=== PATIENT | male | born 1995 ===

== ENCOUNTER 2019-03-25 10:09 | Emergency (ER) | payer SELFPAY ==
[2019-03-25 10:22] VITALS: RESP 18; O2SAT 99
[2019-03-25] MEDS ORDERED: Naproxen 550 mg Tab PO STA (11:07)
[2019-03-25] MEDS ORDERED: Naproxen 550 mg Tab PO ONE (11:13)
[2019-03-25 12:02] VITALS: BP 122/78; PULSE 74; TEMP 98
--- NOTE | 2019-03-25 12:11 | C.PDOC ---
History Of Present Illness 24-year-old male presents to the ED for evaluation of lower back pain which began yesterday. Patient states he lifted a heavy table while at work and began feeling back pain. Patient states his pain worsened as the day progressed and notes pain is worse when he moves and bends down. Patient denies abdominal pain, urinary/bowel incontinence, hematuria, dysuria, extremit numbness/weakness, or falls. Time Seen by Provider: 03/25/19 10:26 Chief Complaint (Nursing): Back Pain History Per: Patient History/Exam Limitations: no limitations Onset/Duration Of Symptoms: Hrs Current Symptoms Are (Timing): Worse Quality Of Discomfort: "Pain" Pain Scale Rating Of: 5 Previous Symptoms: Back Pain Associated Symptoms: denies: Incontinence, New Weakness, New Numbness Exacerbating Factor(s): Movement, Other (bending down ) Additional History Per: Patient Past Medical History Reviewed: Historical Data, Nursing Documentation, Vital Signs Vital Signs: Last Vital Signs Temp 98.0 F 03/25/19 12:01 Pulse 74 03/25/19 12:01 Resp 18 03/25/19 12:01 BP 122/78 03/25/19 12:01 Pulse Ox 99 03/25/19 12:01 Primary Care Provider: FAMILY PROVIDER,NO - Medical History PMH: No Chronic Diseases Surgical History: No Surg Hx Family History: States: Unknown Family Hx - Social History Hx Alcohol Use: No Hx Substance Use: No - Immunization History Hx Tetanus Toxoid Vaccination: No Hx Influenza Vaccination: No Hx Pneumococcal Vaccination: No Review Of Systems Constitutional: Negative for: Fever, Chills Gastrointestinal: Negative for: Abdominal Pain Genitourinary: Negative for: Dysuria, Incontinence, Hematuria Musculoskeletal: Positive for: Back Pain (lower) Skin: Negative for: Rash, Lesions, Jaundice, Bruising Neurological: Negative for: Weakness, Numbness Physical Exam - Physical Exam Appears: Non-toxic, No Acute Distress Skin: Normal Color, Warm, Dry, No Rash Head: Atraumatic, Normacephalic Eye(s): bilateral: Normal Inspection Oral Mucosa: Moist Neck: Normal ROM, Supple Chest: Symmetrical, No Deformity, No Tenderness Cardiovascular: Rhythm Regular, No Friction Rub, No Murmur Respiratory: Normal Breath Sounds, No Rales, No Rhonchi, No Wheezing Gastrointestinal/Abdominal: Soft, No Tenderness, No Guarding, No Rebound Back: No CVA Tenderness, No Vertebral Tenderness, Paraspinal Tenderness (bilateral paralumbar tenderness ), Straight Leg Raising Extremity: Normal ROM, Capillary Refill (less than 2 seconds ), No Swelling Pulses: Left Dorsalis Pedis: Normal, Right Dorsalis Pedis: Normal Neurological/Psych: Oriented x3, Normal Speech, Normal Cognition, Normal Motor, Normal Sensation Gait: Steady ED Course And Treatment O2 Sat by Pulse Oximetry: 99 (on RA) Pulse Ox Interpretation: Normal - Other Rad LS Spine XR X-Ray: Viewed By Me, Read By Radiologist Interpretation: Date of service: 03/25/2019. PROCEDURE: Radiographs of the Lumbar Spine. HISTORY: LOW BACK PAIN,. COMPARISON: No prior. TECHNIQUE: 5 views obtained. FINDINGS: BONES: There are no acute compression fractures. 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 DISC SPACES: Disc space heights appear maintained. Small posterior osteophyte formation L4-L5 level. OTHER FINDINGS: None. IMPRESSION: No acute fractures. 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 . Minor degenerative spondylosis as above. Medical Decision Making Medical Decision Making: Progress: LS spine AP/LAT ordered Naproxen PO and Prednisone PO given. LS spine xray is negative. On re-exam, the patient reports improvement of symptoms. Lungs are CTA, heart is RRR, abdomen is soft, non-tender and the patient is tolerating PO well. Pt is ambulatory in the ED with steady gait. Follow up with the medical doctor within 1-2 days. Return if worsened. Disposition - Disposition Referrals: Emerson Victoria MD [Non-Staff] - Disposition: HOME/ ROUTINE Disposition Time: 12:07 Condition: GOOD Additional Instructions: Follow up with the medical doctor/clinic within 1-2 days. Return if worsened. 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 - Scribe Statement The provider has reviewed the documentation as recorded by the Scribe (Suad Elizabeth) All medical record entries made by the Scribe were at my direction and personally dictated by me. I have reviewed the chart and agree that the record accurately reflects my personal performance of the history, physical exam, medical decision making, and the department course for this patient. I have also personally directed, reviewed, and agree with the discharge instructions and disposition.
--- NOTE | 2019-03-25 15:17 | RAD ---
Date of service: 03/25/2019 PROCEDURE: Radiographs of the Lumbar Spine. HISTORY: LOW BACK PAIN, COMPARISON: No prior. TECHNIQUE: 5 views obtained. FINDINGS: BONES: There are no acute compression fractures. 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 DISC SPACES: Disc space heights appear maintained. Small posterior osteophyte formation L4-L5 level. OTHER FINDINGS: None. IMPRESSION: No acute fractures. 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 . Minor degenerative spondylosis as above.
== END 2019-03-25 12:16 | disposition home or self-care (01) ==
LOC: C.ER 10:09
DX: M54.5 Low back pain (principal)